=== PATIENT | female | born 1975 | race Caucasian/White ===

== ENCOUNTER 2016-12-27 21:58 | Emergency (ER) | payer OTHER ==
[~2016-12-27] VITALS: Ht 160 cm; Wt 75.3 kg
[2016-12-27] MEDS ORDERED: VITA100037 PO (22:06)
[2016-12-28 00:03] VITALS: BP 149/69
[2016-12-28] MEDS ORDERED: AUGM875T27 PO (00:27)
[2016-12-28] MEDS ORDERED: IBUP80TA PO (00:27)
[2016-12-28] MEDS ORDERED: AFRI0.056 (00:27)
[2016-12-28] MEDS ORDERED: OXYMETAZOLINE NASAL SPRAY (AFRIN) ONE (00:30)
[2016-12-28] MEDS ORDERED: AUGMENTIN 875 MG TAB PO ONE (00:30)
[2016-12-28] MEDS ORDERED: IBUPROFEN 800 MG TAB PO ONE (00:30)
[2016-12-28] MEDS ORDERED: DIFL150T PO (00:40)
== END 2016-12-28 00:47 | disposition home or self-care (01) ==
LOC: M ED 22:59
DX: H66.92 Otitis media, unspecified, left ear (principal); Z90.49 Acquired absence of other specified parts of digestive tract; Z88.2 Allergy status to sulfonamides

== ENCOUNTER → 2019-07-05 | Outpatient (REF) | payer OTHER ==
[~2019-07-05] MED LIST: AFRI0.056; AUGM875T28 PO; DIFL150T PO; IBUP80TA PO; VITA100067 PO
== END ==
LOC: M SFHCLERA 14:39
PROVIDERS: ATTEND Nurse Practitioner Family
DX: R53.81 Other malaise (principal)

== ENCOUNTER → 2021-06-03 | Outpatient (CLI) | payer OTHER ==
--- NOTE | 2021-06-03 14:09 | REP ---
INDICATION: KAL ANNUAL MAMMO W/ IMPLANTS. COMPARISON: 05/02/2016. TECHNIQUE: MLO and CC views bilateral breasts, implant displaced views with tomosynthesis FINDINGS: Moderate heterogeneous fibroglandular tissue is present. There is a possible 1 cm nodule in the upper outer quadrant of the right breast. I see no other evidence of mass or suspicious clusters of microcalcifications. The breast implants are grossly intact. The [facility] volumetric breast density pattern is C. IMPRESSION: BIRADS/ACR category 0, incomplete. Possible 1 cm nodule upper-outer quadrant right breast. Recommend spot compression views and ultrasound to further evaluate. [facility] 8.[facility]%. This mammogram was interpreted with the aid of an FDA-approved computer-aided detection system. The patient states she had a clinical breast exam in April 2021. The patient letter being requested is M0. RECOMMENDATION: Recommend spot compression views and ultrasound right breast as discussed above. <Electronically signed by Theo Silver > 06/03/21 [id number]
== END ==
LOC: M WHC 12:19
PROVIDERS: ATTEND Family Medicine
DX: Z12.31 Encounter for screening mammogram for malignant neoplasm of breast (principal)

== ENCOUNTER → 2021-06-26 | Outpatient (CLI) | payer OTHER | LOC: M WHC 13:48 | PROVIDERS: ATTEND Family Medicine | DX: R92.2 Inconclusive mammogram (principal) | CPT/HCPCS: 77065; G0279 ==